=== PATIENT | female | born 1960 | race Caucasian/White ===

== ENCOUNTER 2016-06-06 10:00 | Inpatient (IN) | payer OTHER ==
[~2016-06-06] VITALS: Ht 165.1 cm; Wt 80.3 kg
[~2016-06-06 10:00] MED LIST: CALC-223 PO; CEFAZOLIN 2 GM/50 ML (PMX) 50 ML IVPB SCH; CHOL2000 PO; D5-NS + KCL 20 MEQ 1,000 ML IV SCH; FERR15DR5 PO; FOLI-49 PO; GLUC-167 PO; MET25 PO; Metronidazole 500 MG in NS 100 ML IVPB SCH; NAPR375T PO; OMEP40CA6 PO; PRED1TAB17 PO; TYLENOL ARTHRITIS PO
[2016-06-10] VITALS (27 sets, daily range): BP systolic 121–159; BP diastolic 66–78; PULSE 58–83; RESP 13–22; Ht 165.1 cm; Wt 80.3 kg
[2016-06-10] MEDS ORDERED: CEFAZOLIN 2 GM/50 ML (PMX) 50 ML IVPB SCH (06:00)
[2016-06-10] MEDS ORDERED: D5-NS + KCL 20 MEQ 1,000 ML IV SCH (06:00)
[2016-06-10] MEDS ORDERED: Metronidazole 500 MG in NS 100 ML IVPB SCH (06:00)
[2016-06-10] MEDS ORDERED: CEFAZOLIN 1 GM INJ ONE (07:00)
[2016-06-10] MEDS ORDERED: MET25 PO (08:30)
[2016-06-10] MEDS ORDERED: OMEP40CA6 PO (08:31)
[2016-06-10] MEDS ORDERED: ALEN70TA30 PO (08:33)
[2016-06-10] MEDS ORDERED: CALC1WAF PO (08:45)
[2016-06-10] MEDS ORDERED: ATOR10TA65 PO (08:45)
[2016-06-10] MEDS ORDERED: HYDR200T5 PO (08:46)
[2016-06-10] MEDS ORDERED: LIDOCAINE 2% (SDV) 5 ML INJ ONE (09:54)
[2016-06-10] MEDS ORDERED: GLYCOPYRROLATE 0.4 MG INJ ONE (09:54)
[2016-06-10] MEDS ORDERED: FENTAnyl 50 MCG/ML VIAL ONE ×2 (09:54→16:51)
[2016-06-10] MEDS ORDERED: morphine SULFATE/PF (10 MG/10 ML) INJ ONE (09:54)
[2016-06-10] MEDS ORDERED: PROPOFOL 20 ML ONE (09:54)
[2016-06-10] MEDS ORDERED: NEOSTIGMINE 3 MG/3 ML SYRINGE ONE (09:54)
[2016-06-10] MEDS ORDERED: ROCURONIUM 50 MG INJ ONE (09:54)
[2016-06-10] MEDS ORDERED: MIDAZOLAM 1 MG/ML 2 ML INJ ONE (09:54)
--- NOTE | 2016-06-10 13:32 | HPN ---
Date/Time of Note Date/Time of Note DATE: 06/10/16 TIME: 13:32 Interval H&P Admission Note Pt. seen H&P reviewed: No system changes LIANE TURNER MD Jun 10, 2016 13:32
[2016-06-10] MEDS ORDERED: DEXAMETHASONE 4 MG/ML 1 ML INJ ONE (14:20)
[2016-06-10] MEDS ORDERED: ONDANSETRON 4 MG INJ ONE (14:20)
[2016-06-10] MEDS ORDERED: VASOPRESSIN 20 UNITS INJ ONE (14:58)
[2016-06-10] MEDS ORDERED: METHYLENE BLUE 1% 10 ML INJ ONE (14:58)
[2016-06-10] MEDS ORDERED: THROMBIN 5000 UNIT VIAL ONE (15:13)
[2016-06-10] MEDS ORDERED: EPHEDrine SULFATE 50 MG/5 ML SYG ONE (16:55)
[2016-06-10] MEDS ORDERED: LIDOCAINE 4% CR ONE (16:56)
[2016-06-10] MEDS ORDERED: MEPERIDINE 25 MG INJ IV PRN (18:30)
[2016-06-10] MEDS ORDERED: LABETALOL HCL 20MG INJ IV PRN (18:30)
[2016-06-10] MEDS ORDERED: FENTAnyl 50 MCG/ML VIAL IV PRN ×3 (18:30)
[2016-06-10] MEDS ORDERED: METOCLOPRAMIDE 10 MG INJ IV PRN (18:30)
[2016-06-10] MEDS ORDERED: EPHEDrine SULFATE 50 MG/5 ML SYG IV PRN (18:30)
[2016-06-10] MEDS ORDERED: ONDANSETRON 4 MG INJ IV PRN ×2 (18:30)
[2016-06-10] MEDS ORDERED: hydrALAzine 20 MG INJ IV PRN (18:30)
[2016-06-10] MEDS ORDERED: DIPHENHYDRAMINE 50 MG INJ IV PRN (18:30)
[2016-06-10] MEDS ORDERED: HYDROmorphONE (0.2 MG/ML) 10ML SYG IV PRN ×3 (18:30)
[2016-06-10 18:45] LABS: ADD SCAN DIFF NO
[2016-06-10 18:47] LABS: BASOPHILS % 0.2 % (0.0-2.0); EOSINOPHILS # 0.1 10^3/ul (0.0-0.5); EOSINOPHILS % 0.5 % (0.0-7.0); HEMATOCRIT 33.4 % (37.0-47.0); HEMOGLOBIN 10.9 g/dl (12.0-16.0); LYMPHOCYTES # 1.6 10^3/ul (0.8-2.9); LYMPHOCYTES % 11.8 % (15.0-51.0); MEAN CORPUSCULAR HEMOGLOBIN 29.9 pg (29.0-33.0); MEAN CORPUSCULAR HGB CONC 32.6 g/dl (32.0-37.0); MEAN CORPUSCULAR VOLUME 91.8 fl (82.0-101.0); MEAN PLATELET VOLUME 9.5 fl (7.4-10.4); MONOCYTE # 0.7 10^3/ul (0.3-0.9); NEUTROPHIL # 11.3 10^3/ul (1.6-7.5); NEUTROPHILS % 82.1 % (39.0-77.0); PLATELET COUNT 308 10^3/UL (140-415); RED BLOOD COUNT 3.64 10^6/ul (4.20-5.40); RED CELL DISTRIBUTION WIDTH 14.9 % (11.5-14.5); WHITE BLOOD COUNT 13.7 10^3/ul (4.8-10.8)
[2016-06-10] MEDS ORDERED: morphine 2 MG INJ IV PRN (19:00)
[2016-06-10] MEDS ORDERED: traMADol 50 MG TAB PO PRN (19:00)
[2016-06-10 19:04] LABS: CALCIUM 8.1 mg/dl (8.4-10.2); CREATININE 0.5 mg/dl (0.44-1.00); POTASSIUM 3.4 mmol/L (3.5-5.1); PT RATIO 1.1
[2016-06-10 19:26] LABS: INR 1.12; PROTIME 14.4 Sec (12.2-14.2)
[2016-06-10] MEDS: FAMOTIDINE 20 MG INJ IV SCH (20:56)
[2016-06-10] MEDS: D5-LR + KCL 20 MEQ 1,000 ML IV SCH (22:08)
[2016-06-11] VITALS: BP 110/65; PULSE 88; RESP 17
[2016-06-11 01:31] VITALS: BP 117/59; PULSE 74; RESP 18
--- NOTE | 2016-06-11 01:32 | RADRPT ---
PROCEDURE: XR Chest. CLINICAL INDICATION: Right central venous line placement. TECHNIQUE: Single frontal view of the chest was obtained COMPARISON: None FINDINGS: Right central venous jugular line in place, with the tip in the right atrium. Recommend withdrawing same about 5 cm and re-imaging. Cardiomegaly. Hypoinflated lungs accentuate pulmonary vascular markings. Pulmonary vascular congestion. There is no pleural effusion or pneumothorax. IMPRESSION: 1. Right central venous fibula line in place, with the tip in the right atrium. 2. Recommend withdrawing same about 5 cm and re-imaging. 3. Mild pulmonary vascular congestion. RPTAT: [facility] Physician Merle Date Time Electronically viewed and signed by Physician Merle on 06/11/2016 01:32 RS/
[2016-06-11] MEDS: D5-LR + KCL 20 MEQ 1,000 ML IV SCH ×3 (04:30→18:28)
[2016-06-11 05:52] LABS: ADD SCAN DIFF NO
[2016-06-11 06:04] LABS: BASOPHILS % 0.2 % (0.0-2.0); HEMATOCRIT 33.4 % (37.0-47.0); HEMOGLOBIN 10.9 g/dl (12.0-16.0); LYMPHOCYTES # 0.9 10^3/ul (0.8-2.9); MEAN CORPUSCULAR HEMOGLOBIN 29.2 pg (29.0-33.0); MEAN CORPUSCULAR HGB CONC 32.6 g/dl (32.0-37.0); MEAN CORPUSCULAR VOLUME 89.5 fl (82.0-101.0); MONOCYTE # 0.8 10^3/ul (0.3-0.9); MONOCYTES % 6.7 % (0.0-11.0); NEUTROPHIL # 10.7 10^3/ul (1.6-7.5); NEUTROPHILS % 85.7 % (39.0-77.0); PLATELET COUNT 335 10^3/UL (140-415); RED BLOOD COUNT 3.73 10^6/ul (4.20-5.40); RED CELL DISTRIBUTION WIDTH 14.8 % (11.5-14.5); WHITE BLOOD COUNT 12.5 10^3/ul (4.8-10.8)
[2016-06-11 06:12] LABS: INR 1.08; PT RATIO 1.1
[2016-06-11 06:30] LABS: POTASSIUM 4.2 mmol/L (3.5-5.1)
[2016-06-11 06:33] LABS: CREATININE 0.58 mg/dl (0.44-1.00)
[2016-06-11 06:34] LABS: CALCIUM 8.9 mg/dl (8.4-10.2)
[2016-06-11 07:48] VITALS: BP 126/72; RESP 18
[2016-06-11] MEDS: FAMOTIDINE 20 MG INJ IV SCH ×2 (09:02→20:55)
[2016-06-11 20:04] VITALS: BP 119/69; RESP 18
[2016-06-12] MEDS ORDERED: ZOLPIDEM 5 MG TAB PO PRN (00:50)
[2016-06-12] MEDS: D5-LR + KCL 20 MEQ 1,000 ML IV SCH ×2 (05:34→15:53)
[2016-06-12 07:42] VITALS: BP 100/62; RESP 20
[2016-06-12] MEDS ORDERED: ALENDRONATE 70 MG TAB PO SCH (07:45)
[2016-06-12] MEDS: FAMOTIDINE 20 MG INJ IV SCH (08:18)
[2016-06-12] MEDS ORDERED: MSM PO SCH (09:00)
[2016-06-12] MEDS ORDERED: VIT D3 PO SCH (09:00)
[2016-06-12] MEDS ORDERED: CHOLECALCIFEROL 2,000 UNIT CAP PO SCH (09:00)
[2016-06-12] MEDS ORDERED: FOLIC ACID 1 MG TAB PO SCH (09:00)
[2016-06-12] MEDS ORDERED: GLUCOSAM PO SCH (09:00)
[2016-06-12] MEDS ORDERED: [UNRECOGNIZED DRUG - OTHER] PO SCH (09:00)
[2016-06-12] MEDS ORDERED: CHONDROIT PO SCH (09:00)
--- NOTE | 2016-06-12 09:25 | CONS ---
DATE OF ADMISSION: 06/10/2016 DATE OF CONSULTATION: 06/11/2016 TYPE OF CONSULTATION: TIME SEEN: 2300. REASON FOR CONSULTATION: Medical management. The patient is a 55-year-old female with a history of rheumatoid arthritis, osteoporosis, dyslipidem ia, erosive gastritis, GERD who was admitted and underwent laparoscopic total radical hysterectomy w ith bilateral salpingo-oophorectomy and lymph node dissection. A consult was placed for medical man agement. Currently, except for occasional pain the patient does not have any complaint. Also denie d chest pain, shortness of breath, cough, or fever or chills. REVIEW OF SYSTEMS: A 12-point review of systems was performed and is negative except as mentioned in HPI. PAST MEDICAL HISTORY: As per HPI. PAST SURGICAL HISTORY: She had a left foot and leg surgery. Sodium of systems. PAST SURGICAL HISTORY, arthrodesis, left first metatarsophalangeal joint. SOCIAL HISTORY: No reported history of tobacco, alcohol or illicit drug use. ALLERGIES: NO KNOWN DRUG ALLERGIES. HOME MEDICATIONS: 1. Plaquenil. 2. Methotrexate. 3. Lipitor. 4. Calcium. 5. Omeprazole. 6. Folic acid. 7. Alendronate. 8. Glucosamine chondroitin. PHYSICAL EXAMINATION: VITAL SIGNS: Stable. GENERAL: No acute distress, slightly sleepy, but arousable. HEENT: No obvious head deformity. Pupils equal, round and reactive to light. CARDIOVASCULAR: Regular rate and rhythm. No extra sounds. LUNGS: Clear. ABDOMEN: There is pain in the surgical site. G-tube site in place. EXTREMITIES: No edema. LABORATORY DATA: WBC 13.7, hemoglobin 10.9, sodium 132, potassium 3.4, otherwise CBC and BMP are wi thin acceptable range. IMPRESSION: 1. Status post laparoscopic hysterectomy and bilateral salpingo-oophorectomy with lymph node dissec tion. 2. History of dyslipidemia. 3. History of rheumatoid arthritis. 4. History of osteoporosis. 5. Normocytic anemia, likely a combination of iron deficiency and anemia of chronic disease and 6. History of erosive esophagitis. 7. History of gastroesophageal reflux disease. PLAN: Continue pain management. Advance diet as tolerated per primary. Decision about DVT prophylax is will also be left up to surgeon. Will continue PPI as well as continue pain management and also the rest of her home medications and with adjustment as needed. Will correct electrolytes as needed . Will check a ferritin and iron profile to work up her anemia, especially given her history of eros tomasa gastritis. Again, as mentioned above, will continue PPI. Leukocytosis is likely stress-induced but if no improvement or if the patient becomes febrile then w ill do infectious workup. Further workup and management per clinical course. Dictated By: FANNY JOYCE/JOY Conf#: [id number] DID#: [id number]
--- NOTE | 2016-06-12 16:45 | PDOCDIS ---
Discharge Instructions CONDITION Patient Condition: Good HOME CARE INSTRUCTIONS: Diet Instructions: Regular ACTIVITY: Activity Restrictions: No Restrictions FOLLOW UP/APPOINTMENTS Appointments F/U WITH YOUR PCP AND TOBACCO HANGER JONATHAN LINARES Jun 12, 2016 16:45
[2016-06-12] MEDS ORDERED: ATORVASTATIN 10 MG TAB PO SCH (21:00)
[2016-06-12] MEDS ORDERED: FAMOTIDINE 20 MG TAB PO SCH (21:00)
--- NOTE | 2016-06-13 06:01 | DS ---
DATE OF ADMISSION: 06/10/2016 DATE OF DISCHARGE: 06/12/2016 DISCHARGE DIAGNOSES: 1. Status post laparoscopic hysterectomy and bilateral salpingo-oophorectomy with lymph node dissec tion. Follow up with Dr. Sanchez for further pathology. 2. Dyslipidemia, stable. 3. Rheumatoid arthritis, stable. 4. History of osteoporosis, stable. Continue home medications. 5. History of gastroesophageal reflux disease. Continue home medications. HOSPITAL COURSE: The patient is a 55-year-old female with a history of rheumatoid arthritis, osteop orosis, dyslipidemia, erosive gastritis, and GERD. The patient was admitted and underwent laparosco pic total radical hysterectomy with bilateral salpingo-oophorectomy and lymph node dissection. We w ere consulted for medical management. The patient was cleared for discharge by FLIGHT INFORMATION EXPEDITER. On the day of discharge, the patient's vitals, labs, and physical exam were stable. She had no acute complaint s. Questions were answered. CONDITION ON DISCHARGE: Stable. DISPOSITION: To home. MEDICATIONS: The patient is to continue her usual home medications. FOLLOWUP: The patient is to follow up with her PCP in 1 to 2 weeks and with her construction rigger as ins tructed. Greater than 30 minutes was spent coordinating discharge of patient. Dictated By: JONATHAN LINARES MD BS/NTS Conf#: [id number] DID#: [id number]
[2016-06-13] MEDS ORDERED: CALCIUM/VITAMIN D (500/200) TAB PO SCH (09:00)
[2016-06-13] MEDS ORDERED: METHOTREXATE 2.5 MG TAB PO SCH (09:00)
--- NOTE | 2016-06-14 22:19 | OPR ---
Date/Time of Note Date/Time of Note DATE: 06/14/16 TIME: 22:19 Operative Report Free Text/Dictation OPERATIVE REPORT [facility] Name: Gela Darby Medical Date: 06/10/16 Preoperative Diagnosis: ADARSH III LEEP margins positive x2 Postoperative Diagnosis: Pathology pending Procedures: 1. Laparoscopic Type 2 Hysterectomy / Bilateral salpingoophorectomy 2. [place]/selective pelvic lymph node dissection Surgeon: Dr. Sanchez Blue Leather Sorter: FORTUNATO Anesthesia: General with regional Indications for Procedure; The patient is a 55- year old female who had a prior LEEP with a preinvasive finding x2. She the had repeat ADARSH III with a positive ECC and a repeat LEEP was not anatomically possible. Hence after considering all options with risks and benefits the Laparoscopic Type 2 Hysterectomy with Bilateral salpingoophorectomy with sentinel/selective LND was selected. Summary of Procedure: The patient was laparoscoped with the finding of some adhesions and the adnexia densely adherent to the sidewalls and some fibroids. The Laparoscopic Type 2 Hysterectomy with Bilateral salpingoophorectomy with sentinel/selective LND was completed with negative findings on frozen section. Findings and Procedure: After being prepped and draped in the usual manner a EEA sizer and pneumo- occluder was inserted vaginally after which a 5 millimeter trocar was placed cephlad to the umbilicus without incident. Subsequently, we insufflated and placed two 12 millimeter Name: Gela [facility]by Medical trocars laterally and a 12 millimeter trocar suprapubically. At this time the 0 -degree 5-millimeter laparoscopic was secured and manipulated with a Scope manipulator and any pelvic adhesions were lysed with sharp dissection. The uterus was manipulated with a previously placed EEA sizer. There was no apparent extra-uterine disease. A baby-lap was placed and a ratcheted endo- grasper was inserted via the suprapubic trocar and used to manipulate the uterus while being secured with a Ralph-arm, after which the right round ligament was transected with a Thunderbeat. The bladder flap was then developed with a Gyrus bipolar cutting forceps instrument as well as Omni and blunt dissection. The retroperitoneal area was opened with the Omni parallel to the IP-ligament and the ureter was identified. Due to both scarring and inflammation from the prior procedure and the uterine enlargement as well as the need to isolate the uterine artery the ureter was dissected with the Omni and lateralized, after which normal peristalsis was observed. Of note, the aforementioned inflammation as well as adnexia adherent to the sidewall necessitated that the ureteral dissection with repositioning being more extensive than anticipated but this was completed without incident. After repositioning the ureter laterally away from the peritoneum, the anastacio-rectal and anastacio-vessicle space was developed bluntly, after which a space was applied to the right broad ligament and the right IP-ligament was cauterized and transected with the Gyrus bipolar cutting forceps and Omni. We then repositioned the uterus with the ratcheted endo-grasper and with a Ralph arm. With both the aforementioned ureter identified and traced out the uterine vessels were thoroughly dissected separately identified, clipped multiple areas , and cut. The ureter was then tunneled through the parametria with an endo dissector, and the parametrial pedicle cauterized remote from the ureters and transected with the Thunderbeat. An identical procedure was used to transect the uterosacral ligaments an appropriate distance from the cervix with the Omni and Thunderbeat. Any bleeding areas were addressed with additional cautery using the the Omni. The bladder pillar was then dissected and clipped and desiccated and transected, after which the ureters was confirmed to be undamaged. At this time the uterine positioning adjusted with the ratcheted endo -grasper and secured with the lower Ralph-arm and the contralateral retroperitoneal area opened with the Omni and the adjacent round ligament cauterized and transected with the Gyrus bipolar cutting forceps. The retroperitoneal space was opened with the Omni and extended. The Name: Gela [facility] retroperitoneal area was further opened with the Omni parallel to the IP- ligament and the ureter was identified. Due to similar scarring and inflammation from the prior procedure as noted contralaterally with hypervascularity as well as uterine enlargement and the need to isolate the uterine artery the ureter was dissected with the Omni and lateralized, after which normal peristalsis was observed. Of note, the aforementioned inflammation as well as adnexia adherent to the sidewall necessitated that the ureteral dissection with repositioning be more extensive than anticipated but this was completed without incident. After repositioning the ureter laterally away from the peritoneum, the anastacio-rectal and anastacio-vessicle space was developed bluntly, after which a space was applied to the left broad ligament and the left IP-ligament was cauterized and transected with the Thunderbeat. We then repositioned the uterus with the ratcheted endo-grasper with a Ralph Arm retractor. With both the aforementioned ureter identified and traced out the left uterine vessels were thoroughly dissected separately identified, clipped multiple areas, and cut. The ureter was then tunneled through the parametria with an endo dissector, and the parametrial pedicle cauterized remote from the ureters and transected with the Omni and Thunderbeat. An identical procedure was used to transect the uterosacral ligaments an appropriate distance from the with the Omni. Any bleeding areas were addressed with additional cautery using the Omni. The bladder pillar was then dissected and clipped and desiccated and transected as done contralaterally, after which the ureters was confirmed to be undamaged. Subsequently, additional paravaginal tissue was transected with the Omni and the uterus and cervix from the vagina by using a Thunderbeat and Omni along the edge of the EEA sizer. Colpotomies were made posterior and anterior and extended. The uterus was removed from below and the vagina closed with interrupted figure of eight sutures using 2-0-vicryl and continuous 2-0 strata-fix suture. After confirming hemostasis a fan retractor was placed and secured with the Ralph Arm retractor on the right and a Stortz scope-preston was used to secure the laparoscope and adjusted as needed after which the nodes noted to be in the hypogastric area and obturator area on the right retroperitoneal area were dissected with the Omni and Gyrus bipolar cutting forceps for hemostasis and lymphostasis. The dissection included the use of the instruments for traction and counter traction and the obturator nerve was identified in the process. Subsequently exposure was modified and nodes noted to be Name: Gela [facility] equivalent on the left retroperitoneal area were dissected with the Omni and Gyrus bipolar cutting forceps for hemostasis and lymphostasis similar to contralaterally with technique. The dissection included the use of the instruments for traction and counter traction and the obturator nerve was identified in the process. After irrigating and assuring hemostasis all 12 millimeter trocar fascia were removed and the fascia was closed with 0-vicryl using with endo-close devise. The gas was removed and the skin of all sites then closed with 4-0 Monocryl suture. The EBL was 75 ml and the patient tolerated the procedure well and left the OR in good condition. Liane Sanchez M.D. LIANE SANCHEZ MD Jun 14, 2016 22:19
== END 2016-06-12 18:20 | disposition home or self-care (01) | DRG 743 ==
LOC: REC 06-10 07:42 → MS2 06-10 19:55
PROC: 0UT24ZZ Resection of Bilateral Ovaries, Percutaneous Endoscopic Approach (ICD-10-PCS; 2016-06-10)
PROC: 0UT74ZZ Resection of Bilateral Fallopian Tubes, Percutaneous Endoscopic Approach (ICD-10-PCS; 2016-06-10)
PROC: 0UTC4ZZ Resection of Cervix, Percutaneous Endoscopic Approach (ICD-10-PCS; 2016-06-10)
PROC: 07BC4ZX Excision of Pelvis Lymphatic, Percutaneous Endoscopic Approach, Diagnostic (ICD-10-PCS; 2016-06-10)
PROC: 0UT94ZZ Resection of Uterus, Percutaneous Endoscopic Approach (ICD-10-PCS; principal; 2016-06-10 10:30)
DX: N87.9 Dysplasia of cervix uteri, unspecified (principal); E78.5 Hyperlipidemia, unspecified; D64.9 Anemia, unspecified; M06.9 Rheumatoid arthritis, unspecified; M81.0 Age-related osteoporosis without current pathological fracture; K21.9 Gastro-esophageal reflux disease without esophagitis; Z79.83 Long term (current) use of bisphosphonates
CPT/HCPCS: 71010; 80048; 85025; 85610; 86850; 86900; 86901; 86920; 88307; J0690; J1100; J1170; J1644; J2250; J2274; J2405; J2710; J3010; J3480

== ENCOUNTER 2016-12-10 05:36 | Day surgery (SDC) | payer OTHER ==
[~2016-12-10] VITALS: Ht 165.1 cm; Wt 80.2 kg
[2016-12-10] VITALS (12 sets, daily range): BP systolic 99–118; BP diastolic 56–73; PULSE 56–67; RESP 11–18; Ht 165.1 cm; Wt 80.2 kg
[~2016-12-10 05:36] MED LIST changes: +ALEN70TA30 PO; +ATOR10TA65 PO; -CALC-223 PO; +CALC1WAF PO; -CEFAZOLIN 2 GM/50 ML (PMX) 50 ML IVPB SCH; -D5-NS + KCL 20 MEQ 1,000 ML IV SCH; -FERR15DR5 PO; +HYDR200T5 PO; -Metronidazole 500 MG in NS 100 ML IVPB SCH; -NAPR375T PO; -PRED1TAB17 PO; -TYLENOL ARTHRITIS PO
[2016-12-10] MEDS ORDERED: FENTAnyl 50 MCG/ML VIAL IV PRN ×2 (06:30)
[2016-12-10] MEDS ORDERED: ONDANSETRON 4 MG INJ IV PRN (06:30)
[2016-12-10] MEDS ORDERED: PROPOFOL 20 ML ONE (06:30)
[2016-12-10] MEDS ORDERED: DIPHENHYDRAMINE 50 MG INJ IV PRN (06:30)
[2016-12-10] MEDS ORDERED: MEPERIDINE 25 MG INJ IV PRN (06:30)
[2016-12-10] MEDS ORDERED: MIDAZOLAM 1 MG/ML 2 ML INJ IV PRN (06:30)
[2016-12-10] MEDS ORDERED: GLYCOPYRROLATE 0.4 MG INJ ONE (06:30)
[2016-12-10] MEDS ORDERED: MIDAZOLAM 1 MG/ML 2 ML INJ ONE (06:30)
[2016-12-10] MEDS ORDERED: LABETALOL HCL 20MG INJ IV PRN (06:30)
[2016-12-10] MEDS ORDERED: HYDROmorphONE (0.2 MG/ML) 10ML SYG IV PRN ×3 (06:30)
[2016-12-10] MEDS ORDERED: ROCURONIUM 50 MG INJ ONE (06:30)
[2016-12-10] MEDS ORDERED: EPHEDrine SULFATE 50 MG/5 ML SYG IV PRN (06:30)
[2016-12-10] MEDS ORDERED: FENTAnyl 50 MCG/ML VIAL ONE (06:30)
[2016-12-10] MEDS ORDERED: ATROPINE 1 MG/10 ML SYRINGE IV PRN (06:30)
[2016-12-10] MEDS ORDERED: OXYCODONE/ACETAMINOPHEN (5/325) TAB PO PRN ×2 (06:30)
[2016-12-10] MEDS ORDERED: hydrALAzine 20 MG INJ IV PRN (06:30)
[2016-12-10] MEDS ORDERED: LIDOCAINE 2% (SDV) 5 ML INJ ONE (06:30)
[2016-12-10] MEDS ORDERED: DEXAMETHASONE 4 MG/ML 1 ML INJ ONE ×2 (06:30→09:46)
[2016-12-10] MEDS ORDERED: NEOSTIGMINE 3 MG/3 ML SYRINGE ONE (06:30)
[2016-12-10] MEDS ORDERED: morphine (1 MG/ML) 10ML SYRINGE IV PRN ×3 (06:30)
[2016-12-10] MEDS ORDERED: SUCCINYLCHOLINE CHLORIDE 100 MG/5 ML SYG IV ONE (06:31)
[2016-12-10] MEDS ORDERED: ONDANSETRON 4 MG INJ ONE (06:31)
[2016-12-10] MEDS ORDERED: BUPIVACAINE 0.5% (SDV) 30 ML INJ ONE (07:09)
[2016-12-10] MEDS ORDERED: POLYMYXIN/BACITRACIN 1L IRRIG ONE (07:09)
--- NOTE | 2016-12-10 08:47 | HPN ---
Date/Time of Note Date/Time of Note DATE: 12/10/16 TIME: 08:47 Interval H&P Admission Note Pt. seen H&P reviewed: No system changes ANASTACIA GRAHAM DPM Dec 10, 2016 08:47
[2016-12-10] MEDS ORDERED: LIDOCAINE 1% (MPF) 30 ML INJ ONE (08:59)
[2016-12-10] MEDS ORDERED: ATROPINE 1 MG/10 ML SYRINGE ONE (09:06)
--- NOTE | 2016-12-12 11:32 | OPR ---
DATE OF OPERATION: 12/10/2016 PREOPERATIVE DIAGNOSES: 1. Painful arthritic right 1st metatarsal phalangeal joint. 2. Rheumatoid arthritis. POSTOPERATIVE DIAGNOSES: 1. Painful arthritic right 1st metatarsal phalangeal joint. 2. Rheumatoid arthritis. PROCEDURE PERFORMED: Arthrodesis right 1st metatarsal phalangeal joint. SURGEON: Jose Neves DPM ANESTHESIOLOGIST: Iron Pedersen MD ANESTHESIA: Local with IV sedation. DESCRIPTION OF PROCEDURE: The patient was brought into the operating room, placed on the table in a secured supine position. Cardiac monitoring and IV sedation and an ankle pneumatic tourniquet were utilized for this case. Preoperatively a total of 20 mL of 0.5 percent Marcaine plain mixed with 2 percent lidocaine plain were infiltrated into the right foot in the form of a lowery block. Upon achieving anesthesia, the right foot and leg were prepped and draped in the usual sterile manner. The ankle pneumatic tourniquet was then inflated to 250 mmHg. Procedure number 1 was then performed, arthrodesis of the right first metatarsal phalangeal joint. A 4 cm dorsal medial incision was performed centering at the metatarsophalangeal joint. The incision was deepened. Superficial bleeders were cauterized and Bovied as necessary. The linear capsulotomy was performed. The capsule was reflected medially and lateral exposing the arthritic 1st metatarsophalangeal joint. Using the appropriate Cherelle reamers, the cartilaginous surface of the head of the metatarsal and the base of the proximal phalanx was denuded. The joint surfaces were fenestrated with Josie wire. Temporary fixation was achieved with a 4.5 Josie wire. Intraoperative fluoroscopy was utilized to view the alignment and opposition of the arthrodesis site. Satisfactory alignment was noted. Cherelle plate and 3.0 mm cannulated screw was inserted from distal medial to proximal lateral crossing the joint. Again, intraoperative arthroscopy was utilized to check for alignment. Good placement of screws and plate was noted. Satisfactory opposition of bone edges were noted. The area was copiously irrigated with sterile saline mixed with bacitracin solution. Capsule was then reapproximated with 3-0 Vicryl simple interrupted sutures. The subcutaneous tissue was closed with 4-0 Vicryl simple interrupted sutures and the skin edges were reapproximated with a running 3-0 Prolene subcuticular stitch. The dressing consisted of Xeroform gauze, , Steri-Strips, 4 x 4 gauze, 4 inch Kerlix roll, 2 inch Coban in a semi-compressive dressing. Immediate hyperemia was noted upon deflating the ankle tourniquet to all digits of the right foot. A posterior splint was applied intraoperatively. The patient tolerated the above procedure well. Left the operating room with vital signs stable and satisfactory. The patient will follow up 1 week postop. Dictated By: Jose Neves DPM /tim/giorgi /Document#: [id number]
== END 2016-12-10 12:00 | disposition home or self-care (01) ==
LOC: SUR 05:36 → SDS 05:36 → EDSTATUS 07:30 → SUR 12:00
PROVIDERS: ATTEND Podiatrist Primary Podiatric Medicine
DX: M19.071 Primary osteoarthritis, right ankle and foot (principal); M06.9 Rheumatoid arthritis, unspecified; E11.9 Type 2 diabetes mellitus without complications; Z79.4 Long term (current) use of insulin; E78.5 Hyperlipidemia, unspecified
CPT/HCPCS: 28750; J0461; J1100; J1170; J2250; J2405; J3010; Z7512; Z7610; J2710; J7999